=== PATIENT | female | born 2005 | race Caucasian/White ===

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

== ENCOUNTER 2025-05-02 12:45 | Outpatient (REF) | payer OTHER, SELFPAY ==
--- OUTSIDE RECORDS SUMMARY | 2025-05-02 13:18 | XMS_ITS ---
Author Name [facility] Organization Unknown History of Medication Use Medication Directions Dispensed Refills Start Date End Date Stat us Tri-Estarylla (28) 0.18 mg(7)/0.215 mg(7)/0.25 mg(7)-0.035 mg tablet Take 1 tablet every day by oral route. 01/28/2025 active azithromycin 250 mg tablet TAKE 2 TABLETS BY MOUTH TODAY, THEN TAKE 1 TABLET DAILY FOR 4 DAYS DIRECTED 01/28/2025 completed cephalexin 500 mg capsule TAKE 1 CAPSULE BY MOUTH THREE TIMES A DAY FOR 7 DAYS 01/28/2025 completed metformin 500 mg tablet TAKE 1 TABLET (500 MG) BY MOUTH 2X DAILY WITH A MEAL 01/28/2025 completed oxycodone 5 mg tablet TAKE 1 TABLET BY MOUTH EVERY 6 HOURS NEEDED FOR SEVERE PAIN 01/28/2025 completed Tri-Estarylla (28) 0.18 mg(7)/0.215 mg(7)/0.25 mg(7)-0.035 mg tablet active escitalopram 5 mg tablet TAKE 1 TABLET BY MOUTH EVERY DAY FOR 30 DAYS active Allergies Allergen Reaction Severity Comment Documented Date Source Statu s [facility] Problems Problem Status Onset Date Problem Type Date of Resoluti on Source Polycystic ovary syndrome active 2025-01-28 ProblemAct [facility] Encounters Encounter Type Encounter Reason Primary Diagnosis Location Date Ambulatory no current diagnosis no current diagnosis [facility] 01/28/2025 Care Team Organization Name Specialty Phone Email Start Date End Da te [facility] 01/28/2025 [facility] 01/28/2025 [facility] 02/07/2024
--- OUTSIDE RECORDS SUMMARY | 2025-05-02 13:18 | XMS_ITS | Clinical Summary ---
Author Organization [facility] [address] [facility] [address] Address [address] [place] [address] Phone Care Team Providers Care Hair Worker Name Role Phone Chapis Brown Primary Care Provider Allergies Active Allergy Reactions Criticality Noted Date Comments Amoxicillin Rash 10/28/2024 Medications norgestimate-eth inyl estradiol (TRI-ESTARYLLA ORAL) Take 1 tablet by mouth at bedtime. Active Active Problems Problem Noted Date Diagnosed Date S/P tonsillectomy 11/07/2024 Encounters Date Type Department Care Team Description 01/30/2025 4:20 AM EDT - 01/30/2025 9:02 AM EDT Emergency [facility] Emergency [address] [place] [id number] Bita Colby MD Kenton, Mark A, MD Left upper quadrant abdominal pain (Primary Dx) Discharge Disposition: Home or Self Care from Last 3 Months Surgical History Surgery Date Site/Laterality Comments BARIATRIC SURGERY Medical History Medical History Date Comments Sleep apnea Social History Tobacco Use Types Packs/Day Years Used Date Smoking Tobacco: Never Smokeless Tobacco: Never Tobacco Cessation:Counseling Given: Not Answered Alcohol Use Standard Drinks/Week Comments Never 0 (1 standard drink = 0.6 oz pur e alcohol) Housing Instability Answer Date Recorde d Are you worried that in the next 2 months you may not have stable housing? No 11/07/2024 Food Access & Nutrition Answer Date Rec orded Do you have access to a vari ety of food including fruits and vegetables? Yes 11/07/2024 Access to Healthcare Answer Date Record ed Within the last 3 months, ho w many times did you visit the emergency department for your medical care? 0 11/07/2024 Health Literacy Answer Date Recorded How often do you need to hav e someone help you when you read instructions, pamphlets, or other written material from your doctor or pharmacy? Never 11/07/2024 Caregiver: How often do you need to have someone help you when you read instructions, pamphlets, or other written material from your doctor or pharmacy? Not on file 11/07/2024 Financial Risk Answer Date Recorded How hard is it for you to pa y for the very basics like food, housing, medical care, and air conditioning / heating? Not very hard 11/07/2024 Transportation Answer Date Recorded Has the lack of transportati on kept you from meetings, work, or from getting things needed for daily living? No Has the lack of transportati on kept you from medical appointments or from getting medications? No 11/07/2024 Social Isolation Answer Date Recorded How often do you feel lonely or isolated from th ose around you? Never 11/07/2024 Food Risk Answer Date Recorded Within the past 12 months we worried whether our food would run out before we got money to buy more. Never true 11/07/2024 Within the past 12 months th e food we bought just didn't last and we didn't have money to get more. Never true 11/07/2024 Dependent Care Answer Date Recorded Do you need help finding or paying for care for your loved ones. For example, child and adolescent psychologist or elderly care for an older adult? No 11/07/2024 Education Answer Date Recorded Do you think completing more education or training, like finishing a GED, going to college, or learning a trade, would be helpful for you? No 11/07/2024 Employment and Income Answer Date Recor ded During the last four weeks, have you been actively looking for work? No 11/07/2024 Living Situation Answer Date Recorded What is your living situation? 0 11/07/2024 Interpersonal Safety Answer Date Record ed Physical Abuse 11/07/2024 Verbal Abuse 11/07/2024 Comments No Sex and Gender Information Value Date Recorded Sex Assigned at Female 11/06/2024 12:00 PM EST Legal Sex Female 7:36 AM EST Gender Identity Female 11/06/2024 12:00 PM EST Sexual Orientation Straight 11/06/2024 12 :00 PM EST Obstetrics History Last Filed Vital Signs Vital Sign Reading Time Taken Comments Blood Pressure 121/75 01/30/2025 8:24 AM EDT Pulse 64 01/30/2025 8:24 AM EDT Temperature 37 C (98.6 F) 01/30/2025 8:24 AM EDT Respiratory Rate 18 01/30/2025 8:24 AM EDT Oxygen Saturation 100% 01/30/2025 8:24 AM EDT Inhaled Oxygen Concentration - - Weight 86.2 kg (190 lb) 01/30/2025 3:03 AM EDT Height 165.1 cm (5' 5 ) 01/30/2025 3:03 AM EDT Body Mass Index 31.62 01/30/2025 3:03 AM EDT Plan of Treatment Health Maintenance Due Date Last Done Comments Gonorrhea/Chlamydia Screening 2004 Meningococcal B Vaccine (1 of 2 - Standard) 2020 HIV Screening 07/25/2024 Hepatitis C Screening 07/25/2024 Depression Screening 09/04/2024 Influenza Vaccine (#1) 2025 , 07/26/2023, 08/22/2022, Additional history exists Social Influencers of Health Screening 11/07/2025 11/07/2024 Annual Well Child Visit (3-21 years old) 01/28/2026 01/28/2025 DTaP,Tdap,and Td Vaccines (8 - Td or Tdap) 05/29/2034 05/29/2024, 04/07/2016, 01/11/2010, Additional history exists HIB Vaccines Completed 04/05/2006, 01/2005, 04/04/2005, Additional history exists Pneumococcal Vaccine: Pediatrics (0 to 5 Years) and At-Risk Patients (6 to 49 Years) Completed 04/05/2006, 06/08/2005, 04/04/2005, Additional history exists IPV Vaccines Completed 01/11/2010, 05/2009, 06/08/2005, Additional history exists MMR Vaccines Completed 01/11/2010, 12/07/2005 Varicella Vaccines Completed 01/11/2010, 12/07/2005 Hepatitis A Vaccines Completed 01/21/2013, 03/24/20 11 HPV Vaccines Completed 10/11/2016, 10/12/2015, 04/07/2016 Meningococcal ACWY Vaccine Completed 06/30/2021, COVID-19 Vaccine Completed 05/25/2024, , 09/16/2021, Additional history exists Hepatitis B Vaccines Completed 05/29/2024, 06/08/2005, 04/04/2005, Additional history exists RSV Immunization Patients Under 20 months Aged Out No longer eligible based on patient's age to complete this topic Procedures Procedure Name Priority Date/Time Associated Diagnosis Comments CT ABDOMEN PELVIS W CONTRAST STAT 01/30/2025 7:47 AM EDT POC , URINE DIAGNOSTIC STAT 01/30/2025 5:42 AM EDT MARTINEZ URINE CULTURE TUBE STAT 01/30/2025 3:08 AM EDT URINALYSIS WITH REFLEX MICROSCOPIC AND CULTURE STAT 01/30/2025 3:08 AM EDT URINALYSIS WITH REFLEX MICROSCOPIC AND CULTURE STAT 01/30/2025 3:08 AM EDT CBC WITH AUTO DIFFERENTIAL STAT 01/30/2025 3:05 AM EDT LIPASE STAT 01/30/2025 3:05 AM EDT COMPREHENSIVE METABOLIC PANEL STAT 01/30/2025 3:05 AM EDT CBC AND DIFFERENTIAL STAT 01/30/2025 3:05 AM EDT from Last 3 Months Results * CT Abdomen Pelvis w Contrast (01/30/2025 7:47 AM EDT) Anatomical Region Laterality Modality Body Computed Tomogra phy 01/30/2025 8:36 AM EDT Impressions 01/30/2025 8:44 AM EDT No obstruction, free air or focal inflammatory changes. Status post gastric sleeve formation. Nonobstructing left upper quadrant mesenteric hernia not excluded. -------- FINAL REPORT -------- Dictated By: Gypsy Quinonez Dictated Date: 01/30/2025 08:36 ET Assigned Physician: Gypsy Quinonez Reviewed and Electronically Signed By: Gypsy Quinonez Signed Date: 01/30/2025 08:44 ET Workstation ID: [id number] Transcribed By: Self Edit Transcribed Date: 01/30/2025 08:36 ET Narrative 01/30/2025 8:44 AM EDT INDICATION: Abdominal pain TECHNIQUE: CT scan of the abdomen and pelvis obtained with a total of 90 cc of Isovue-370 administered intravenously without incident. Oral contrast was not administered. Scanner: [id number] LightSpeed 64 slice VCT Dose reduction technique: ASIR (Adaptive statistical iterative reconstruction) and/or AEC (automated exposure control) Dose: total exam DLP 1002 mGY per cm COMPARISON: No prior studies are available for comparison. FINDINGS: Lung bases are clear. Bony structures are unremarkable for the patient's age. Liver, spleen, pancreas, gallbladder, adrenal glands and kidneys are within normal limits. Postoperative changes most consistent with gastric sleeve formation. Small bowel loops are nondistended. Group of small bowel extend into the left upper quadrant adjacent to the stomach and anterior to the splenic flexure of the colon therefore mesenteric hernia cannot be excluded. No bowel wall thickening or inflammatory changes. No free air fluid in the abdomen. Urinary bladder normal. Uterus within normal limits. No adnexal masses. Trace free fluid in the pelvis. Abdominal aorta normal in course and caliber. No lymphadenopathy. Procedure Note Gypsy Quinonez MD - 01/30/2025 INDICATION: Abdominal pain TECHNIQUE: CT scan of the abdomen and pelvis obtained with a total of 90cc of Isovue-370 administered intravenously without incident. Oralcontrast was not administered. Scanner: Wadaro Limitedpeed 64 slice VCT Dose reduction technique: ASIR (Adaptive statistical iterativereconstruction) and/or AEC (automated exposure control) Dose: total exam DLP 1002 mGY per cm COMPARISON: No prior studies are available for comparison. FINDINGS: Lung bases are clear. Bony structures are unremarkable for the patient's age. Liver, spleen, pancreas, gallbladder, adrenal glands and kidneys arewithin normal limits. Postoperative changes most consistent with gastric sleeve formation. Smallbowel loops are nondistended. Group of small bowel extend into the leftupper quadrant adjacent to the stomach and anterior to the splenic flexureof the colon therefore mesenteric hernia cannot be excluded. No bowel wallthickening or inflammatory changes. No free air fluid in the abdomen. Urinary bladder normal. Uterus within normal limits. No adnexal masses. Trace free fluid in thepelvis. Abdominal aorta normal in course and caliber. No lymphadenopathy. IMPRESSION: No obstruction, free air or focal inflammatory changes. Status post gastric sleeve formation. Nonobstructing left upper quadrantmesenteric hernia not excluded. -------- FINAL REPORT -------- Dictated By: Gypsy Quinonez Dictated Date: 01/30/2025 08:36 ET Assigned Physician: Gypsy Quinonez Reviewed and Electronically Signed By: Gypsy Quinonez Signed Date: 01/30/2025 08:44 ET Workstation ID: [id number] Transcribed By: Self Edit Transcribed Date: 01/30/2025 08:36 ET Chas Renae MD IMG CT PROCEDURES Final Result * POC , urine manually resulted (01/30/2025 5:42 AM EDT) Pathologist [facility] HCG, Ur POC Negative Negative POC hCG Int QC Pass? Yes Yes Urine Urine specimen obtained by clean catch procedure / Unknown 01/30/2025 5:42 AM EDT Bita Colby MD POINT OF CARE TEST ENTER /EDIT ORDERABLES Final Result * (ABNORMAL) Urinalysis with reflex microscopic and culture (01/30/2025 3:08 AM EDT) Pathologist [facility] Specific [place]ony Urine 1.025 1.003 - 1.030 LAB URINALYSIS - AUTOMATED METHOD 01/30/2025 4:[address] [facility] pH, Urine 6.0 5.0 - 8.0 pH LAB URINALYSIS - AUTOMATED METHOD 01/30/2025 4:00 AM [facility] Leukocytes, Urine Negative Negative LAB URINALYSIS - AUTOMATED METHOD 01/30/2025 4:00 AM [facility] Nitrite, Urine Negative Negative LAB URINALYSIS - AUTOMATED METHOD 01/30/2025 4:00 AM [facility] Protein, Urine Negative <=Trace mg/dL LAB URINALYSIS - AUTOMATED METHOD 01/30/2025 4:00 AM [facility] Glucose, Urine Negative Negative mg/dL LAB URINALYSIS - AUTOMATED METHOD 01/30/2025 4:00 AM [facility] Ketones, Urine Negative Negative mg/dL LAB URINALYSIS - AUTOMATED METHOD 01/30/2025 4:00 AM [facility] Urobilinogen, Urine 2.0(A) 0.2 - 1.0 mg/dL LAB URINALYSIS - AUTOMATED METHOD 01/30/2025 4:00 AM [facility] Bilirubin, Urine Negative Negative LAB URINALYSIS - AUTOMATED METHOD 01/30/2025 4:00 AM [facility] Blood, Urine Small(A) Negative LAB URINALYSIS - AUTOMATED METHOD 01/30/2025 4:00 AM [facility] RBC, Urine 2 0 - 4 /HPF LAB URINALYSIS - AUTOMATED METHOD 01/30/2025 4:00 AM [facility] WBC, Urine 1 0 - 4 /HPF LAB URINALYSIS - AUTOMATED METHOD 01/30/2025 4:00 AM [facility] Squamous Epithelial, Urine 10 0 - 60 /LPF LAB URINALYSIS - AUTOMATED METHOD 01/30/2025 4:00 AM [facility] Bacteria, Urine Few(A) Negative /HPF LAB URINALYSIS - AUTOMATED METHOD 01/30/2025 4:00 AM [facility] Hyaline Casts, Urine 2 0 - 3 /LPF LAB URINALYSIS - AUTOMATED METHOD 01/30/2025 4:[address] [facility] Mucus, Urine Moderate None /HPF LAB URINALYSIS - AUTOMATED METHOD 01/30/2025 4:[address] [facility] Urine Urine specimen obtained by clean catch procedure / Unknown Non-blood Collection / Unknown 01/30/2025 3:08 AM EDT 01/30/2025 3:30 AM EDT Bita Colby MD LAB URINE ORDERABLES Fin al Result Performing Organization Address [facility]/ZIP Co de Phone Number [facility] [address] [place] [address], [place] [phone] * Martinez urine culture tube (01/30/2025 3:08 AM EDT) Extra Tube Hold for add-ons. 01/30/2025 5:[address] [facility] Comment:Auto resulted. Urine Urine specimen obtained by clean catch procedure / Unknown Non-blood Collection / Unknown 01/30/2025 3:08 AM EDT 01/30/2025 3:30 AM EDT Bita Colby MD LAB URINE ORDERABLES Fin al Result Performing Organization Address City/[facility]/ZIP Co de Phone Number [facility] [address] [place] [address], [place] [phone] * CBC auto differential (01/30/2025 3:05 AM EDT) WBC 8.8 4.8 - 10.8 K/[facility] HEMETOLOGY METHOD 01/30/2025 3:[address] [facility] RBC 4.50 3.80 - 4.80 M/[facility] LAB HEMETOLOGY METHOD 01/30/2025 3:[address] [facility] Hemoglobin 13.2 11.5 - 16.0 g/dL LAB HEMETOLOGY METHOD 01/30/2025 3:35 AM [facility] Hematocrit 40.0 35.0 - 47.0 % LAB HEMETOLOGY METHOD 01/30/2025 3:35 AM [facility] MCV 89.9 79.0 - 98.0 FL LAB HEMETOLOGY METHOD 01/30/2025 3:35 AM [facility] MCH 29.7 27.0 - 32.0 pcg LAB HEMETOLOGY METHOD 01/30/2025 3:35 AM [facility] MCHC 33.0 32.0 - 37.0 g/dL LAB HEMETOLOGY METHOD 01/30/2025 3:35 AM [facility] RDW 13.6 11.0 - 15.0 % LAB HEMETOLOGY METHOD 01/30/2025 3:35 AM [facility] Platelets 205 130 - 400 K/mcL LAB HEMETOLOGY METHOD 01/30/2025 3:35 AM [facility] MPV 10.1 7.0 - 11.0 FL LAB HEMETOLOGY METHOD 01/30/2025 3:35 AM [facility] NRBC 0.0 <1.0 % LAB HEMETOLOGY METHOD 01/30/2025 3:35 AM [facility] NRBC Absolute 0.00 <0.10 K/mcL LAB HEMETOLOGY METHOD 01/30/2025 3:35 AM [facility] Neutrophils Relative 56.4 % LAB HEMETOLOGY METHOD 01/30/2025 3:35 AM [facility] Lymphocytes Relative 33.8 % LAB HEMETOLOGY METHOD 01/30/2025 3:35 AM [facility] Monocytes Relative 7.3 % LAB HEMETOLOGY METHOD 01/30/2025 3:[address] [facility] Eosinophils Relative 1.9 % LAB HEMETOLOGY METHOD 01/30/2025 3:[address] [facility] Basophils Relative 0.5 % LAB HEMETOLOGY METHOD 01/30/2025 3:35 AM [facility] Immature Granulocytes Relative 0.1 % LAB HEMETOLOGY METHOD 01/30/2025 3:[address] [facility] Neutrophils Absolute 4.94 1.50 - 7.00 K/mcL LAB HEMETOLOGY METHOD 01/30/2025 3:[address] [facility] Lymphocytes Absolute 2.96 1.00 - 5.00 K/mcL LAB HEMETOLOGY METHOD 01/30/2025 3:35 AM [facility] Monocytes Absolute 0.64 0.20 - 1.00 K/mcL LAB HEMETOLOGY METHOD 01/30/2025 3:[address] [facility] Eosinophils Absolute 0.17 0.00 - 0.50 K/mcL LAB HEMETOLOGY METHOD 01/30/2025 3:[address] [facility] Basophils Absolute 0.04 0.00 - 0.20 K/mcL LAB HEMETOLOGY METHOD 01/30/2025 3:35 AM [facility] Immature Granulocytes Absolute 0.01 0.00 - 0.03 K/mcL LAB HEMETOLOGY METHOD 01/30/2025 3:[address] [facility] Blood Venous blood specimen / Unknown Venipuncture / Unknown 01/30/2025 3:05 AM EDT 01/30/2025 3:30 AM EDT us Bita Colby MD LAB BLOOD ORDERABLES Fin al Result [facility] [address] [place] [address], * Lipase (01/30/2025 3:05 AM EDT) Lipase 34 13 - 75 unit/L LAB CHEMISTRY METHOD 01/30/2025 4:08 AM [facility] Blood Venous blood specimen / Unknown Venipuncture / Unknown 01/30/2025 3:05 AM EDT 01/30/2025 3:30 AM EDT Bita Colby MD LAB BLOOD ORDERABLES Fin al Result [facility] [address] [place] [address], * (ABNORMAL) Comprehensive metabolic panel (01/30/2025 3:05 AM EDT) Pathologist [facility] Sodium 139 133 - 145 mmol/L LAB CHEMISTRY METHOD 01/30/2025 4:08 AM [facility] Potassium 3.4(L) 3.5 - 5.5 mmol/L LAB CHEMISTRY METHOD 01/30/2025 4:08 AM [facility] Chloride 108 96 - 110 mmol/L LAB CHEMISTRY METHOD 01/30/2025 4:08 AM [facility] CO2 22 21 - 32 mmol/L LAB CHEMISTRY METHOD 01/30/2025 4:08 AM [facility] Anion Gap 9 3 - 11 LAB CHEMISTRY METHOD 01/30/2025 4:08 AM [facility] Glucose 104(H) 70 - 100 mg/dL LAB CHEMISTRY METHOD 01/30/2025 4:08 AM [facility] BUN 12 5 - 25 mg/dL LAB CHEMISTRY METHOD 01/30/2025 4:08 AM [facility] Creatinine 0.79 0.50 - 1.10 mg/dL LAB CHEMISTRY METHOD 01/30/2025 4:08 AM [facility] eGFR 110 >=60 mL/min/1. 73m2 LAB CHEMISTRY METHOD 01/30/2025 4:08 AM [facility] Comment:Calculation based on the Chronic Kidney Disease Epidemiology Collaboration (CKD-EPI) equation refit without adjustment for race. BUN/Creatinine Ratio 15.2 LAB CHEMISTRY METHOD 01/30/2025 4:08 AM [facility] Calcium 9.6 8.5 - 10.5 mg/dL LAB CHEMISTRY METHOD 01/30/2025 4:08 AM [facility] AST (SGOT) 15 10 - 42 unit/L LAB CHEMISTRY METHOD 01/30/2025 4:08 AM [facility] ALT (SGPT) 20 10 - 60 unit/L LAB CHEMISTRY METHOD 01/30/2025 4:08 AM [facility] Alkaline Phosphatase 61 42 - 121 unit/L LAB CHEMISTRY METHOD 01/30/2025 4:08 AM [facility] Total Protein 7.6 6.0 - 8.0 g/dL LAB CHEMISTRY METHOD 01/30/2025 4:08 AM [facility] Albumin 3.7 3.2 - 5.0 g/dL LAB CHEMISTRY METHOD 01/30/2025 4:08 AM [facility] Total Bilirubin 0.6 0.0 - 1.4 mg/dL LAB CHEMISTRY METHOD 01/30/2025 4:08 AM [facility] Blood Venous blood specimen / Unknown Venipuncture / Unknown 01/30/2025 3:05 AM EDT 01/30/2025 3:30 AM EDT us Bita Colby MD LAB BLOOD ORDERABLES Fin al Result [facility] [address] [place] [address], [place] [phone] from Last 3 Months [place] [phone] Advance Directives * Full Code - Default (Latest Code Status on File) Date Activated Date Inactivated Comments 11/07/2024 9:14 AM 11/08/2024 1:50 PM This is order is used when code status has not been discussed with the patient, or code status is otherwise unknown/unconfirmed To update the patient's code status, place a code status order. Do not modify or discontinue any currently active code status orders. Care Teams Hair Worker Relationship Specialty Start Date End Date Chapis Brown PA [address] [place] [phone] PCP - General 11/06/24
--- OUTSIDE RECORDS SUMMARY | 2025-05-02 13:18 | XMS_ITS | Clinical Summary ---
Author Organization [facility] Address [address] [place] [address] Care Team Providers Care Carbon Coater Machine Operator Name Role Phone Unavailable Primary Care Provider Unavailabl e Social History Tobacco Use Types Packs/Day Years Used Date Smoking Tobacco: Never Assessed Comments Unknown Sex and Gender Information Value Date Recorded Sex Assigned at Female 02/07/2024 9:52 AM EDT Legal Sex Female 9:44 AM EDT Gender Identity Female 02/07/2024 9:52 AM EDT Sexual Orientation Heterosexual (straight) 02/06 9:52 AM EDT Plan of Treatment Health Maintenance Due Date Last Done Comments Hepatitis C Virus Screening 2004 HIV Screening 2017 HPV Vaccines (1 - 3-dose series) 12/03/2019 DTaP/Tdap/Td Vaccines (1 - Tdap) 12/03/2023 Hepatitis B Vaccines (1 of 3 - 19+ 3-dose series) 12/03/2023 COVID-19 Vaccine (1 - 2023-2 5 season) 2024 Influenza Vaccine 04/04/2025 Pneumococcal Vaccine: Pediat lillie (0-5 Years) and At-Risk Patients (6 to 49 Years) Aged Out No longer eligible b ased on patient's age to complete this topic Insurance [facility]
[2025-05-06 13:09] LABS: Quantiferon TB Gold Plus 1 NEGATIVE (NEGATIVE); TB Test (QFT) Mitogen -Nil 8.05 IU/mL; TB Test (QFT) Nil 0.01 IU/mL; TB Test (QFT) Plus TB1 -Nil 0.00 IU/mL; TB Test (QFT) Plus TB2 -Nil 0.00 IU/mL
== END 2025-05-02 12:46 | disposition home or self-care (01) ==
LOC: HO.LAB 12:45
PROVIDERS: Visit Provider Physician Assistant
DX: Z11.1 Encounter for screening for respiratory tuberculosis (principal)
CPT/HCPCS: 36415; 86480